=== PATIENT | male | born 1990 | race Caucasian/White ===

== ENCOUNTER 2023-10-09 09:25 | Emergency (ER) | payer BC, SELFPAY ==
--- NOTE | 2023-10-09 09:38 | ED.NAVMDI ---
HPI - Nausea/Vomiting/Diarrhea General Chief complaint: Nausea/Vomiting/Diarrhea Stated complaint: nausea,lightheaded,vomiting Source: patient, RN notes reviewed and old records reviewed Mode of arrival: ambulatory Limitations: no limitations History of Present Illness HPI Narrative: 33-year-old male patient presents to [facility] with complaints nausea, vomiting, diarrhea, general malaise, general myalgia this started . Patient states he has vomited 2 times. Patient states had diarrhea on and is now just having loose stools. Patient taking DayQuil for symptoms with little relief. Related Data Allergies Allergy/AdvReac Type Severity Reaction Status Date / Time codeine Allergy Intermediate INCREASES Verified 10/10/18 19:26 HR, BP AND TEMP Penicillins Allergy Mild Rash Verified 10/10/18 19:26 Review of Systems Constitutional: Constitutional: Reports no additional constitutional complaints, Reports body ache(s), Denies chills, Reports fatigue, Denies fever(s) and Denies headache(s) Eyes: Eyes: Reports no additional eye complaints and Denies blurry vision ENT: Reports system reviewed and no additional complaints, except as documented, Denies vertigo, Denies dizziness, Denies ear discharge, Denies otalgia, Denies facial pain, Denies headache(s), Denies nasal congestion, Denies nasal discharge, Denies sinus pain, Denies sinus pressure and Denies sore throat Cardiovascular: Cardiovascular: Reports no additional cardiovascular complaints, Denies chest pain, Denies chest pain at rest, Denies rapid heart rate and Denies dyspnea Respiratory: Respiratory: Reports no additional respiratory complaints, Denies chest congestion, Denies cough, Denies pain on inspiration, Denies pain with cough and Denies dyspnea Gastrointestinal: Gastrointestinal: Denies abdominal pain, Reports diarrhea, Reports nausea and Reports vomiting Integumentary/Breasts: Skin/Breast: Denies rash Neurologic: Reports system reviewed and no additional complaints, except as documented, Denies vertigo, Denies dizziness and Denies headache(s) Endocrine: Endocrine: Denies fatigue PMFSH Comments At the time of my signature, I reviewed and agree with the nursing past medical, surgical, social, and family history. There is no relevant family history pertinent to the patient complaint. Exam Const: General: cooperative, healthy appearing, no acute distress and well nourished Nutritional Appearance: well nourished Orientation/consciousness: patient oriented x3 Limitations: no limitations HENMT: Head: normal to inspection and normocephalic Ears: external ears normal, TM's normal bilaterally, mastoids normal and Abnormal EAC present Face/Nose/Sinus: normal facial exam Face and sinus: normal facial exam Mouth: Yes Normal oral and palatal mucosa present, Yes oropharynx normal and Yes moist mucous membranes Throat: tonsils normal, uvula midline and no uvular edema Eyes: General: appearance normal, both eyes and all related structures Sclera: sclerae normal Pupils: Equal, round and reactive pupils present Resp: Effort & Inspection: normal respiratory effort, able to speak in complete sentences, no audible wheezes, no cough, no respiratory distress and no retractions Auscultation: clear to auscultation bilaterally, no crackles, no rales, no rhonchi and no wheezes Cardio: Rate: regular rate Rhythm: regular rhythm GI: GI Palp: No abdominal tenderness, Yes Soft to palpation, No Firmness to palpation present (GI), No Tenderness to palpation present (GI), No Guarding due to palpation present (GI), No Rigid due to palpation, Yes No hepatosplenomegaly present, No Splenomegaly present, No Hernia present, No Palpable mass present and No Pulsatile mass present : General: Yes bladder normal to inspection and Yes bladder normal to palpation Skin: General skin exam: normal color and no rashes or lesions noted Neuro: General: patient oriented x3 Cranial nerves: Yes Equal, round and reactive pupils present Psych: Appearance: grossly normal Mental Status: mental status grossly normal Speech and movement: Normal speech and movement present Affect: normal affect Course Course Emergency Course: Patient is aware of diagnosis, understands and agrees to treatment plan.? Anticipatory guidance given.? Patient agrees to follow-up as directed and is aware of reasons to seek care at the emergency department. Some parts of this dictation were generated by voice recognition software and may contain typographical and/or grammatical inaccuracies. Level of Care: Express Care Visit Vital Signs Vital signs: Reviewed MDM - Nausea/Vomiting/Diarrhea MDM Narrative Medical decision making narrative: Patient with nausea vomiting diarrhea that started . Patient's COVID/ influenza test negative. Will treat for viral gastroenteritis. Differential Diagnosis Differential diagnosis: Likely food poisoning, gastroenteritis, dehydration and other (Influenza, Covid) Medical Records Attestation: I reviewed the patient's medical records. Lab Data Attestation: I reviewed the patient's lab results. Discharge Plan Discharge Clinical Impression: Viral gastroenteritis Patient Disposition: Home, Self-Care Condition: Stable Instructions: Gastroenteritis (ED) Additional Instructions: Zofran for nausea /vomiting. Elsk-[id number]-[id number] Imodium for diarrhea. Most important is to keep hydrated. Drink small amounts at a time if nauseated, but frequently. If just able to hold down a few sips only, repeat in a few minutes. The type of liquid is not as important (eg water, Gatorade) as getting enough in. For food, start when you feel ready, start with small amounts of bland food (eg toast, crackers) first, and if no problem can SLOWLY increase the amount. Overall, these stomach bug type illnesses don't last long, averaging 2-5 days, but can last up to 2 weeks. If lasts longer, getting worse, bad pains, black or bloody stools, blood in vomit, fevers start, you feel dizzy when upright, then see us, your doctor, or the emergency room right away. Patient Language: Haitian Prescriptions: New ondansetron 4 mg tablet,disintegrating 4 mg PO Q6H PRN (Reason: nausea and vomiting) Qty: 20 0RF Follow-up/Referrals: Robert,MAXINE Gao [Primary Care Provider] - 1 Week ( [facility] care follow-up) Stand Alone Forms: Work/School Release IP
[2023-10-09 09:41] VITALS: BP 150/94; PULSE 94; RESP 16; TEMP 36.3; O2SAT 98
== END 2023-10-09 10:00 | disposition home or self-care (01) ==
PROVIDERS: Emergency Provider Registered Nurse; PCP Physician Assistant
DX: A08.4 Viral intestinal infection, unspecified (principal); Z20.822 Contact with and (suspected) exposure to COVID-19
CPT/HCPCS: 87426; 87804; 99203; G0463

== ENCOUNTER 2023-10-24 11:18 | Emergency (ER) | payer BC, SELFPAY ==
[2023-10-24 11:22] VITALS: BP 137/88; PULSE 93; RESP 20; TEMP 36.2; O2SAT 98
--- NOTE | 2023-10-24 11:35 | ED.GENADULT ---
HPI - General Adult General Chief complaint: Nausea/Vomiting/Diarrhea Stated complaint: nausea/weakness Time Seen by Provider: 10/24/23 11:37 Source: patient, RN notes reviewed and old records reviewed Mode of arrival: ambulatory Limitations: no limitations History of Present Illness HPI narrative: 33 YEAR OLD MALE PRESENTS TO [facility] WITH COMPLAINTS OF NAUSEA AND VOMITING SINCE YESTERDAY and diarrhea X3 since yesterday. Patient reports that he went to the [employer] and while there started with some nausea and he had abdominal cramping with 3 diarrhea stools last evening. Patient reports that he was on his way to work this morning and he had to stop and throw up. Patient reports that he has had some abdominal cramping but no pain in abdomen, reports no fevers. Patient states that he had similar symptoms 2 weeks ago that last 3 days and resolved. Patient states that he took some Pepto Bismol last night MD complaint: nauea and vomiting, diarrhea Onset (ago): day(s) (day 2 of symptoms) Severity scale (1-10): 3 Treatments prior to arrival: other (peptobismol) Related Data Allergies Allergy/AdvReac Type Severity Reaction Status Date / Time codeine Allergy Intermediate INCREASES Verified 10/24/23 11:41 HR, BP AND TEMP Penicillins Allergy Mild Rash Verified 10/24/23 11:41 Review of Systems Review of Systems: CONSTITUTIONAL: Reports malaise, no chills, sweats, or fever. EYES: Denies visual changes, redness, or discharge. ENT: Reports no rhinorrhea, congestion, sinus pain, no otalgia and no sore throat. CARDIOVASCULAR: Denies chest pain, palpitations, or edema. RESPIRATORY: Reports no cough.? Denies dyspnea. GASTROINTESTINAL: States some abdominal cramping, positive for nausea, vomiting, diarrhea SKIN: Denies rash or itching. MUSCULOSKELETAL: Denies myalgia. NEUROLOGIC: Denies headache. All systems reviewed & are unremarkable except as noted in HPI and below PMFSH Social History Social History (Updated 10/25/23 @ 15:52 by Luciana Ashraf NP) Smoking packs per day: 0.5 Smoking cigarettes per day: 10.0 Years smoked: 5 Smoking pack-years: 2.50 Smoking status: Current every day smoker Tobacco type: cigarettes Alcohol intake: current Alcohol use details: social Substance use type: does not use Living arrangements: with family Gender identity (if verbalized by the patient): Male Comments At time of signature, agree with nursing past medical, surgical, social and family history. There is no relevant family history pertinent to the presenting complaint Exam Narrative: GENERAL: Well-appearing, well-nourished, and in no acute distress. HEAD: Normocephalic EYES: PERRLA, conjunctivae clear ENT: Nares clear, turbinates edematous and erythematous, clear discharge. Mucous membranes moist. TM pearly stewart with dull light reflex bilaterally; no tragal tenderness. Oropharynx erythematous without lesions. Tonsils not enlarged and without exudate, no drooling, no hoarseness, no trismus, uvula midline. NECK: Supple. No lymphadenopathy CHEST: Clear to auscultation, breath sounds equal. No wheezing, rhonchi, rales, or stridor. No respiratory distress, speaks in full sentences.[id number]% on room air HEART: Regular rate and rhythm. No murmur heard. ABDOMEN: soft, nontender to palpation,nondistended, no McBurney point tenderness no rigidity, continued nausea with no vomiting since this morning and no diarrhea since yesterday, denies any sharp pain to abdomen bowel sounds present of adequate quality in all quadrants. SKIN: Warm, dry, no rash. NEURO: Alert and oriented x3. PSYCH: Normal mood and affect Course Course Emergency Course: Patient is aware of diagnosis, understands and agrees to treatment plan.? Anticipatory guidance given.? Patient agrees to follow-up as directed and is aware of reasons to seek care at the emergency department. Portions of this record may have
[2023-10-24] MEDS: ONDANSETRON HCL ODT 4 MG TABLET PO (11:51)
== END 2023-10-24 12:30 | disposition home or self-care (01) ==
PROVIDERS: Emergency Provider Registered Nurse; PCP Physician Assistant
DX: K52.9 Noninfective gastroenteritis and colitis, unspecified (principal); F17.210 Nicotine dependence, cigarettes, uncomplicated
CPT/HCPCS: 99213; A9270; G0463

== ENCOUNTER 2024-07-11 11:02 | Emergency (ER) | payer OTHER, SELFPAY ==
--- NOTE | ~2024-07-11 | XR_ITS ---
EXAMINATION: XR foot RT min 3V DATE: 07/11/2024 11:31 INDICATION: Blunt trauma to the right foot TECHNIQUE: Dorsoplantar, two oblique and lateral views of the right foot were obtained. COMPARISON: None. FINDINGS: Alignment is normal. No fracture. 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 Soft tissues are unremarkable. IMPRESSION: 1. No acute osseous abnormality. Reviewed, dictated and finalized at location A. [facility]
[2024-07-11 11:08] VITALS: BP 129/70; PULSE 73; RESP 20; TEMP 36.4; O2SAT 100
--- NOTE | 2024-07-11 11:17 | ED_ITS ---
HPI - Extremity Injury (Lower) General Chief Complaint: Extremity Injury, Lower Stated Complaint: Right foot injury Time Seen by Provider: 07/11/24 11:18 Source: patient, RN notes reviewed and old records reviewed Mode of arrival: ambulatory Limitations: no limitations History of Present Illness HPI Narrative: 34 year old male who presents to [facility] care with complaints of right foot pain after a manhole cover fell onto his right foot this morning at work.Patient has small red spot to the dorsal aspect of his right foot, no swelling noted. Patient reports pain with ambulation, weight bearing, describes pain as dull continuous ache. complaint: foot injury Onset (ago): hour(s) (this morning while at work.) Injury: Right: foot (dorsal aspect) Type of Injury: blunt Place: work Severity scale (1-10): 3 Exacerbating factors: weight bearing and movement Treatments prior to arrival: other (none) Related Data Home Medications ?Medication ?Instructions ?Recorded ?Confirmed ?Last Taken ?Type No Home Medications 07/11/24 07/11/24 Unknown History Allergies Allergy/AdvReac Type Severity Reaction Status Date / Time codeine Allergy Intermediate INCREASES Verified 07/11/24 11:18 HR, BP AND TEMP Penicillins Allergy Mild Rash Verified 07/11/24 11:18 Review of Systems Review of Systems: CONSTITUTIONAL: Denies fever, chills, or sweats. EYES: Denies visual changes, redness, or discharge. ENT: Denies rhinorrhea, congestion, sore throat, or otalgia. CARDIOVASCULAR: Denies chest pain, palpitations, or edema. RESPIRATORY: Denies cough or dyspnea. GASTROINTESTINAL: Denies abdominal pain, nausea, vomiting, or diarrhea. GENITOURINARY: Denies dysuria or hematuria. SKIN: Denies rash or itching. MUSCULOSKELETAL: Denies back pain,reports pain to dorsal aspect of right foot, or myalgia. NEUROLOGIC: Denies headache, numbness, or weakness. PSYCHIATRIC: Denies anxiety or depression. All systems reviewed & are unremarkable except as noted in HPI and below PMFSH Past Medical History Medical History (Updated 07/12/24 @ 08:53 by Luciana sAhraf NP) Ingrown toenail of right foot removed COVID-19 Dental abscess Bronchitis Social History Social History Smoking packs per day: 0.5 Smoking cigarettes per day: 10.0 Years smoked: 5 Smoking pack-years: 2.50 Smoking status: Current every day smoker Tobacco type: cigarettes Alcohol intake: current Alcohol use details: social Substance use type: does not use Living arrangements: with family Gender identity (if verbalized by the patient): Male Comments At time of signature, agree with nursing past medical, surgical, social and family history. There is no relevant family history pertinent to the presenting complaint Exam Narrative: GENERAL: Well-appearing, well-nourished, and in no acute distress. HEAD: Normocephalic, atraumatic. EYES: PERRLA and EOMI. ENT: Nares clear, no rhinorrhea or epistaxis. Mucous membranes moist. NECK: Supple. CHEST: Clear to auscultation. No respiratory distress.SAO2 sao2 100% on room air HEART: Regular rate and rhythm. No murmur heard. Normal peripheral pulses. ABDOMEN: Soft, nontender, nondistended, normal active bowel sounds. EXTREMITIES: Normal range of motion. No edema.Pain to the dorsal aspect of right foot where manhole cover fell onto foot this morning, small red spot noted on dorsal aspect of right foot, mobility sensation and circulation intact to right foot, pain with ambulation and weight bearing reported.no obvious deformity. SKIN: Warm, dry, no rash. NEURO: No focal deficits. Alert and oriented x3. Course Course Emergency Course: Patient is aware of diagnosis, understands and agrees to treatment plan.? Anticipatory guidance given.? Patient agrees to follow-up as directed and is aware of reasons to seek care at the emergency department. Portions of this record may have been created with voice recognition software Level of Care: Express Care Visit Vital Signs Vital signs: Vital Signs Temperature 36.4 C 07/11/24 11:08 Pulse Rate 73 07/11/24 11:08 Respiratory Rate 20 07/11/24 11:08 Blood Pressure 129/70 07/11/24 11:08 Pulse Oximetry 100 07/11/24 11:08 Oxygen Delivery Room Air 07/11/24 11:08 Temperature 36.4 C 07/11/24 11:08 Pulse Rate 73 07/11/24 11:08 Respiratory Rate 20 07/11/24 11:08 Blood Pressure 129/70 07/11/24 11:08 Pulse Oximetry 100 07/11/24 11:08 Oxygen Delivery Room Air 07/11/24 11:08 Reviewed MDM - Extremity Injury (Lower) MDM Narrative Medical decision making narrative: 1147 Patient medicated with Ibuprofen 600mg while in clinic with no reaction noted. Differential Diagnosis Differential diagnosis: Likely fracture of toe and other (foot fracture, foot contusion,pain right dorsal foot) Medical Records Attestation: I reviewed the patient's medical records. Imaging Data Attestation: I personally reviewed and interpreted this imaging study as follows: My impression: No acute osseous abnormality Radiologist's impression: [facility] [address] [place] [address] XRay Report Signed Patient: Maurizio Jean : 1990 MR#: [id number] Age: 34 Acct:[id number] Loc: EXPBE ADM Date: 07/11/24Attending Dr: Ordering Physician: Luciana Ashraf APRN Date of Service: 07/11/24 Procedure(s): XR foot RT min 3V Accession Number(s): [id number] cc: Robert, Leroy RODRIGUEZ; Luciana Ashraf APRN~ EXAMINATION: XR foot RT min 3V DATE: 07/11/2024 11:31 INDICATION: Blunt trauma to the right foot TECHNIQUE: Dorsoplantar, two oblique and lateral views of the right foot were obtained. COMPARISON: None. FINDINGS: Alignment is normal. No fracture. 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 Soft tissues are unremarkable. IMPRESSION: 1. No acute osseous abnormality. Reviewed, dictated and finalized at location A. [employer] ASSIST[employer] Please be advised this is a medical document. It is intended for [id number] communication. It is written in medical language and may contain unfamiliar abbreviations or verbiage. Medical documents are intended to carry relevant information, facts as evident, and the clinical opinion of the practitioner at the time of the encounter. This report may have been done utilizing a voice recognition system. Attempts have been made to correct errors. However, there may be uncorrected grammatical, spelling, and recognition errors present. The file time of this note does not necessarily represent the time of service. Dictated By: Pramod Fuller MD 07/11/24 1134 Signed By: <Electronically signed by Pramod Fuller MD in OV> Critical Care Time Critical Care Time Critical Care Time: No Discharge Plan Discharge Clinical Impression: Foot pain, right Contusion of foot, right Qualifiers: Encounter type: initial encounter Qualified Code(s): S90.31XA - Contusion of right foot, initial encounter Patient Disposition: Home, Self-Care Condition: Stable Instructions: Antibiotic Form, Foot Contusion (ED) Additional Instructions: Elastic wrap or orthopedic splint as directed for comfort for the next 5-7 days Tylenol for lesser pain Ibuprofen regularly for the next 2-3 days for the inflammation Follow-up with orthopedic surgeon any further complaints or concerns Follow-up with PCP if further problems or concerns Ice to the area 20-30 minutes 4-6 times a day Elevate above heart If your symptoms persist, change or worsen significantly before you can contact your personal physician then please, without delay, go to the emergency department for further evaluation. Follow-up with PCP in 7-10 days or sooner if needed Follow up with PCP soon in regards to your blood pressure which is elevated above threshold for referral. Blood pressure above 120/80 may indicate pre- hypertension. 129/70 Patient Language: Maori Prescriptions: No Action No Home Medications Follow-up/Referrals: Robert,MAXINE Gao [Primary Care Provider] - Time of Disposition: 11:46 Quality Cele Coma Scale Eyes: Open Verbal: Oriented and Alert Motor: Follows Commands Cele Coma Total Score: 15
[2024-07-11] MEDS: IBUPROFEN 600 MG TABLET PO (11:47)
--- OUTSIDE RECORDS SUMMARY | 2024-07-13 17:38 | XMS_ITS | Data Portability ---
[facility] [address] [place] [address] Care Team Providers Care Elevator Inspector Name Role Phone HUMERA JONES Primary Care Provider [phone] Assessment No assessment recorded. Plan of Treatment Reminders Order Date Submit Date Provider Last Modified By Organization Details Last Modified Time Details Appointments None recorded . Lab None recorded . Referral gastroen terologi st referral 2023 024 KHUSHBU Malloy MD, [address] [place], [address], 4 16:44:23 Procedures None recorded . Surgeries None recorded . Imaging XR, ankle + foot 2019 020 [facility] ([facility]) Scheduling, [address] [place], [address], 0 22:48:41 CT, abdomen, w/o contrast 2023 024 [facility] ([facility]) Scheduling, [address] [place], [address], 4 01:06:10 Medication Orders diclofen ac sodium 75 mg tablet,d elayed release 2019 020 [id number], [address], [place], [place], [id number], 0 10:46:40 Patient TargetsNo targets recorded. Patient Instructions Encounter Date Encounter Id Patient Instructions Last Modified By Organization Details Last Modified Time 09/13/2019 [id number] costochondritis: care instructions jnanney Not available 09/13/2019 16:58:25 04/18/2020 [id number] abdominal pain: care instructions jnanney Not available 04/18/2020 11:02:59 follow up in 2 weeks jnanney Not available 04/18/2020 11:02:58 10/27/2023 [id number] A healthy lifestyle: care instructions anney Not available 10/27/2023 14:24:03 11/11/2023 [id number] A healthy lifestyle: care instructions anney Not available 11/11/2023 15:51:38 Reason for Referral Dispute Specialist Referral for Right upper quadrant pain Referring Physician: Humera Jones, Family Medicine, Encounter Date: 11/11/2023 Results Created Date Observation Date Name Description Value Unit Range Abnormal Flag Note LastModifiedBy Organization Detail LastModifiedTime 11/29/19 20 11/28/2019 XR, ankle + foot No observ ation record ed. bbertoglioma Not Available 04/2020 15:26:29 11/29/19 20 11/28/2019 XR, ankle + foot No observ ation record ed. bbertoglioma Not Available 04/2020 15:26:29 11/08/19 24 11/04/2023 CT, abdom en, w/o contr ast No observ ation record ed. [email or web address] [facility] [address] [place], [address], 11/08/2023 10:38:41 07/11/19 25 07/11/2024 XR, foot No observ ation record ed. [email or web address] Bashir [facility] [address], [place], [address], 07/11/2024 14:08:20 Result Notes None recorded. Problems No Known Problems Procedures Surgical History None recorded. Imaging Results Imaging Date Name Status LastModified by Organ [facility]on [facility] Details LastModified Time 11/28/2019 XR, ankle + foot completed Information not available 11/30/2019 15:26:29 11/28/2019 XR, ankle + foot completed Information not available 11/30/2019 15:26:29 11/04/2023 CT, abdomen, w/o contrast [email or web address] [address] [place], [address], 11/08/2023 10:38:41 07/11/2024 XR, foot completed [email or web address] [facility] [address], [place], [address], 07/11/2024 14:08:20 Procedure Notes None recorded. Medical Equipment None Reported. Allergies Allergen ID Allergen Name Allergen Category Reaction Reaction Severity Criticality Documentation Date Start Date Code Code System Note Provider Name and Address Organization Details Recorded Time [id number] 2824e Product containin g penicilli n and antibioti c (product) medicatio n Not available Not available Not available 07/21/2018 92728 05 SNOMED Not Available Not Available Not Available [id number] 1406620n4 2824e codeine medicatio n Not available Not available Not available 07/21/2018 2670 RxNorm Not Available Not Available Not Available Medications Name Sig Start Date Stop Date Status Note LastModified by Organization Details LastModified Time clindamycin HCl 300 mg capsule 09/12 completed Not Available Not Available Not Available azithromyci n 250 mg tablet 07/21 completed Not Available Not Available Not Available benzonatate 200 mg capsule 07/21 completed Not Available Not Available Not Available meloxicam 15 mg tablet 07/21 completed Not Available Not Available Not Available diclofenac sodium 75 mg tablet,brijesh yed release Take 1 tablet twice a day by oral route for 30 days. 04/18 completed Not Available Not Available Not Available mupirocin 2 % topical ointment 07/21 completed Not Available Not Available Not Available ondansetron 4 mg disintegrat ing tablet DISSOLVE 1 TABLET ON TONGUE EVERY 6 HOURS NEEDED FOR NAUSEA AND VOMITING 10/26 completed Not Available Not Available Not Available Virtussin AC 10 mg-100 mg/5 mL oral liquid 07/21 completed Not Available Not Available Not Available Vitals Date Recorded Body weight Provider Name an d Address Organization Details Last Updated DateTime 09/13/2019 579453.53 g Kami Earl [place] - [place] 020 16:23:37 Date Recorded Oxygen saturation Oxygen saturation in Arterial blood by Pulse oximetry Provider Name and Address Organization Details Last Updated DateTime 09/13/2019 98 % 98 % Kami Earl [place] 09/13/2019 16:25:07 Date Recorded Heart rate Provider Name an d Address Organization Details Last Updated DateTime 09/13/2019 80 /min Kami Earl MA [facility] 09/13/19 16:25:11 Date Recorded Body temperature Provider Name a nd Address Organization Details Last Updated DateTime 09/13/2019 98 [degF] Kami Earl [place] 09/13/19 16:25:43 Date Recorded Body height Provider Name an d Address Organization Details Last Updated DateTime 10/27/2023 170.18 cm Sherley Morin MA [facility] 10/27/19 14:00:25 Date Recorded Body mass index (BMI) Body weight Provider Name and Address Organization Details Last Updated DateTime 10/27/2023 37.8 kg/m2 347154.86 g Sherley Morin MA [facility] 10/27/2023 14:00:31 Date Recorded Oxygen saturation Oxygen saturation in Arterial blood by Pulse oximetry Provider Name and Address Organization Details Last Updated DateTime 10/27/2023 96 % 96 % R[facility] [place] 10/27/2023 14:02:09 Date Recorded Heart rate Provider Name an d Address Organization Details Last Updated DateTime 10/27/2023 97 /min R[facility] 10/27/19 14:02:11 Date Recorded Body height Provider Name an d Address Organization Details Last Updated DateTime 11/11/2023 170.18 cm Sherley Morin MA [facility] 11/11/19 15:28:30 Date Recorded Heart rate Provider Name an d Address Organization Details Last Updated DateTime 11/11/2023 94 /min Sherley Morin [place] [facility] [facility] 11/11/19 15:28:47 Date Recorded Oxygen saturation Oxygen saturation in Arterial blood by Pulse oximetry Provider Name and Address Organization Details Last Updated DateTime 11/11/2023 96 % 96 % R[facility] 11/11/2023 15:28:52 Date Recorded Body mass index (BMI) Body weight Provider Name and Address Organization Details Last Updated DateTime 11/11/2023 38.5 kg/m2 672883.72 g Sherley Morin [facility] 11/11/2023 15:29:06 Date Recorded Systolic blood pressure Diastolic blood pressure Provider Name and Address Organization Details Last Updated DateTime 09/13/2019 132 mm[Hg] 84 mm[Hg] Kami Earl MA [facility] 09/13/2019 16:24:58 Date Recorded Systolic blood pressure Diastolic blood pressure Provider Name and Address Organization Details Last Updated DateTime 10/27/2023 136 mm[Hg] 82 mm[Hg] Sherley Morin MA [facility] 10/27/2023 14:02:06 Date Recorded Systolic blood pressure Diastolic blood pressure Provider Name and Address Organization Details Last Updated DateTime 11/11/2023 146 mm[Hg] 90 mm[Hg] Sherley Morin MA [facility] 11/11/2023 15:30:06 Social History Question Answer Notes LastModified by Organizat ion Details LastModified Time Tobacco Smoking Status Current Every Day Smoker Nusrat Mari MA [facility] 07/21/2018 12:12:10 What Is Your Level Of Alcohol Consumption? None Information not available 11/11/2023 What Is Your Level Of Caffeine Consumption? Heavy Information not available 07/21/2018 In The 14 Days Before Symptom Onset, Have You Had Close Contact With A Laboratory-confir med COVID-19 While That Case Was Ill? No Information not available 09/13/2019 If Patient Spent Time In [facility] - Does The Patient Live In [facility]? No Information not available 09/13/2019 In The 14 Days Before Symptom Onset, Have You Had Close Contact With A Person Who Is Under Investigation For COVID-19 While That Person Was Ill? No Information not available 09/13/2019 In The 14 Days Before Symptom Onset, Did The Patient Spend Time In [facility]? No Information not available 09/13/2019 Have You Been To An Area Known To Be High Risk For COVID-19? No Has Been In [facility] Information not available 09/13/2019 Are You Currently Employed? Yes Information not available 04/18/2020 What Type Of Diet Are You Following? REGULAR Information not available 04/18/2020 Which Illicit Or Recreational Drugs Have You Used? None Information not available 07/21/2018 Do You Or Have You Ever Used E-cigarettes Or Vape? 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 11/11/2023 Information not available 11/11/2023 Do You Or Have You Ever Used Smokeless Tobacco? Never Used Smokeless Tobacco Information not available 04/18/2020 How Much Tobacco Do You Smoke? 0.25 PPD 3-4 Cig Information not available 07/21/2018 General Stress Level Medium Information not available 04/18/2020 On What Date Was Tobacco Cessation Counseling Provided? 11/11/2023 Information not available 11/11/2023 How Many Years Have You Smoked Tobacco? 4 Information not available 07/21/2018 Sex: Male Functional Status Question Answer Note LastModified by Organization D etails LastModified Time Are you able to care for yourself? Yes Information n ot available 09/13/2019 Mental Status None recorded. Family History Relationship Description Onset Age of this Age Resolved Age Notes LastModified by Organization Details LastModified Time Maternal Grandmother Diabetes mellitus sdevriesma Not available 07/21 12:11:23 Father Hypertensive disorder sdevriesma Not available 07/21 12:11:30 Paternal Grandfather Family history of malignant neoplasm sdevriesma Not available 07/21 12:12:05 Maternal Grandfather Family history of malignant neoplasm Lung liver sdevriesma Not available 07/21/2018 12:12:05 Maternal Uncle Family history of malignant neoplasm Lung liver sdevriesma Not available 07/21/2018 12:12:05 Medical History Condition Response Coronary Artery Disease N Other N High Blood Pressure N Atrial Fibrillation N Kidney or Bladder Problems N Thyroid Problems N GI Problems N Depression N COPD N Blood Clots N Skin Problems N Anemia N Heart Attack (IA) N Anxiety Disorder N Diabetes N Muscle, Joint, or Bone Problems N Seizures/Epilepsy N Acid Reflux (GERD) N Cancer N Stroke N Asthma N Allergies N High Cholesterol N Hepatitis N Liver Disease N Headaches N Heart Failure N Osteoporosis N Past Encounters Encounter ID Performer Location Encounter Start Date Encounter Closed Date Diagnosis/Indication Diagnosis SNOMED-CT Code Diagnosis ICD10 Code Diagnosis Note [id number] MICHAEL Viramontes [facility] [address] [place] [address] 07/21/2018 11:39:18 07/21/2018 12:56:43 Shoulder joint pain 204164624 M25.512 Adult [facility] th examination 891332266 Z00.00 [id number] Humera Jones PA-C [facility] [address] [place] [address] 08/18/2018 11:31:19 08/18/2018 12:18:32 Pain of left shoulder joint 2972503875 2900500 M25.052 [id number] Kami Earl MA [facility] [address] [place] [address] 09/13/2019 16:17:41 09/13/2019 17:23:39 Costal chondritis 90405392 M94.0 [id number] Humera Jones PA-C [facility] [address] [place] [address] 11/28/2019 09:27:18 11/29/2019 07:16:52 Pain of right ankle joint 0899747164 0433899 M25.048 [id number] Humera Jones PA-C [facility] [address] [place] [address] 04/18/2020 09:33:13 04/19/2020 14:42:43 Abdominal pain 45538476 R10.13 [id number] Humera Jones PA-C [facility] [address] [place] [address] 10/27/2023 13:39:03 11/01/2023 15:27:40 Left upper quadrant pain 396516276 R10.12 Overweight 059170937 E66 .3 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 [id number] Humera Jones PA-C [facility] [address] [place] [address] 11/11/2023 15:11:40 11/12/2023 15:51:04 Right upper quadrant pain 783545973 R10.11 Overweight 893762876 E66 .3 Health Concerns Section Related Observation LastModified by Organization Detai ls LastModified Time None Recorded Concern Status LastModified by Organization Details LastModified Time None Recorded Advance Directives Directive None Recorded Payers Encounter Date Sequence Insurance Name Policy Number Policy Benítez Covered Member ID Benítez Member ID Guarantor Name 09/13/2019 1 [place] [id number] Maurizio Bardmass [id number] Maurizio Bardmass 11/28/2019 1 *SELF PAY* Do uglas Bardmass 04/18/2020 1 *SELF PAY* Do uglas Bardmass 10/27/2023 1 [place] [facility] [employer] - [facility] [employer] [employer] [employer] [id number] Bardmass [id number] Maurizio Bardmass 11/11/2023 1 [employer] [facility] [employer] - [facility] [employer] [address] Bard[address] [id number] Maurizio Bardmass Notes Date Note Type Note Provider Name and Address Organization Details Recorded Time 09/13/2019 text/html for past week sotelo ving intermittant chest pains left arm pains describes minimal jaw pain...some SOB with activity..episode duration..also random headaches not necessarily related to other symptoms..onset of symptoms vary..137/105 yesterday for 45 - an hour duration...no known cardiac history. started with Dr Christopher in the [place] [facility]...2013 had an anxiety attack that felt similar..yesterday reached for his wallet got arm pain an hour later got chest pain... 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 doesnt eat breakfast or sometimes lunch... Humera Jones PA-C Attn: [address] , [place], [address], [facility] 04/18/2020 11:16:27 10/27/2023 text/html went to ER for stomach related issues...vomiting nausea and diarrhea...has been present for awhile...dependant on what he eats...fried foods are worst...describes lower abdomen..30 minutes after eating...never had abdominal scan...was diagnosed as having possible diverticulitis Humera Jones PA-C Attn: Accounting, [address] [facility], [place], [address], [facility] 10/27/2023 14:25:59 11/11/2023 text/html CT negative...af ter eating has stomach pain and diarrhea 30 minutes after eating...no difference in foods.. Humera Jones PA-C Attn: [address] [facility], [place], [address], [facility] 11/11/2023 15:53:45
== END 2024-07-11 11:52 | disposition home or self-care (01) ==
PROVIDERS: Emergency Provider Registered Nurse; PCP Physician Assistant
DX: S90.31XA Contusion of right foot, initial encounter (principal); W20.8XXA Other cause of strike by thrown, projected or falling object, initial encounter; Y99.0 Civilian activity done for income or pay; F17.210 Nicotine dependence, cigarettes, uncomplicated; Z86.16 Personal history of COVID-19
CPT/HCPCS: 73630; 99213; A9270; G0463

== ENCOUNTER 2024-09-29 08:10 | Emergency (ER) | payer MEDICAID, SELFPAY ==
[2024-09-29 08:18] VITALS: BP 149/84; PULSE 88; RESP 20; TEMP 36.8; O2SAT 99
--- NOTE | 2024-09-29 08:19 | ED_ITS ---
HPI - URI/Sore Throat General Chief Complaint: Upper Respiratory Infection Stated Complaint: Cough/Fever Time Seen by Provider: 09/29/24 08:55 Source: patient and RN notes reviewed Mode of arrival: ambulatory Limitations: no limitations History of Present Illness HPI Narrative: 34-year-old male presents concern for 4 day history of fever, chest congestion, cough, sinus congestion, headache, coughing fits. He reports he is having chest pain with coughing and deep breathing intermittently. He has been taking DayQuil and NyQuil. MD elicited complaint: cough Related Data Allergies Allergy/AdvReac Type Severity Reaction Status Date / Time codeine Allergy Intermediate INCREASES Verified 09/29/24 08:36 HR, BP AND TEMP Penicillins Allergy Mild Rash Verified 09/29/24 08:36 Review of Systems Review of Systems: CONSTITUTIONAL: Reports malaise, fever. EYES: Denies visual changes, redness, or discharge. ENT: Denies rhinorrhea, congestion, sinus pain, otalgia and sore throat. CARDIOVASCULAR: Denies chest pain, palpitations, or edema. RESPIRATORY: Reports cough, chest congestion, intermittent chest pain with coughing and deep breathing. Denies dyspnea. GASTROINTESTINAL: Denies abdominal pain, nausea, vomiting, diarrhea SKIN: Denies rash or itching. MUSCULOSKELETAL: Reports myalgia. NEUROLOGIC: Reports headache. All systems reviewed & are unremarkable except as noted in HPI and below PMFSH Past Medical History Medical History (Updated 09/29/24 @ 09:09 by Didi Pruitt NP) Ingrown toenail of right foot removed COVID-19 Dental abscess Bronchitis Social History Social History Smoking packs per day: 0.5 Smoking cigarettes per day: 10.0 Years smoked: 5 Smoking pack-years: 2.50 Smoking status: Current every day smoker Tobacco type: cigarettes Alcohol intake: current Alcohol use details: social Substance use type: does not use Living arrangements: with family Gender identity (if verbalized by the patient): Male Comments At time of signature, agree with nursing past medical, surgical, social and family history. There is no relevant family history pertinent to the presenting complaint Exam 2 Narrative: GENERAL: Nontoxic-appearing, well-nourished, and in no acute distress. HEAD: Normocephalic EYES: PERRLA, conjunctivae clear ENT: Nares clear. Mucous membranes moist. TM pearly stewart with sharp light reflex bilaterally; no tragal tenderness. Oropharynx not erythematous without lesions. Tonsils not enlarged and without exudate, no drooling, no hoarseness, no trismus, uvula midline. NECK: Supple. No lymphadenopathy CHEST: Clear to auscultation, breath sounds equal. No wheezing, rhonchi, rales, or stridor. No respiratory distress, speaks in full sentences. Harsh cough noted HEART: Regular rate and rhythm. No murmur heard. SKIN: Warm, dry, no rash. NEURO: Alert and oriented x3. PSYCH: Normal mood and affect Course Course Emergency Course: Patient is aware of diagnosis, understands and agrees to treatment plan. Anticipatory guidance given. Patient agrees to follow-up as directed and is aware of reasons to seek care at the emergency department. Portions of this record may have been created with voice recognition software Level of Care: Express Care Visit Vital Signs Vital signs: Vital Signs Temperature 98.2 F 09/29/24 08:18 Pulse Rate 88 09/29/24 08:18 Respiratory Rate 20 09/29/24 08:18 Blood Pressure 149/84 H 09/29/24 08:18 Pulse Oximetry 99 09/29/24 08:18 Oxygen Delivery Room Air 09/29/24 08:18 Temperature 98.2 F 09/29/24 08:18 Pulse Rate 88 09/29/24 08:18 Respiratory Rate 20 09/29/24 08:18 Blood Pressure 149/84 H 09/29/24 08:18 Pulse Oximetry 99 09/29/24 08:18 Oxygen Delivery Room Air 09/29/24 08:18 Reviewed. MDM - URI/Sore Throat MDM Narrative Medical decision making narrative: Differential diagnosis considered: Marks virus, strep pharyngitis, allergic rhinitis, upper respiratory tract infection, sinusitis, rhinosinusitis, nasopharyngitis. viral pharyngitis, otitis media, otitis externa, pneumonia, bronchitis, viral cough syndrome, viral syndrome, and influenza. Exam findings show no acute concerns or changes; patient is non-toxic appearing and is in no distress. Patient is appropriate for outpatient treatment and follow-up. Lab Data Attestation: I reviewed the patient's lab results. Critical Care Time Critical Care Time Critical Care Time: No Discharge Plan Discharge Clinical Impression: Bronchitis Patient Disposition: Home Condition: Stable Instructions: Antibiotic Form Additional Instructions: Viral illness may last between 7-21 days; antibiotics do not cure viral illness and are NOT recommended at this time. Recommend antihistamine such as Benadryl at night time and Zyrtec or Brneda during the day Cough syrup may cause drowsiness; avoid driving or take it at night time. Also, recommend symptomatic treatment includes: rest, fluids, and increase humidity of the air at home. Recommend Acetaminophen as directed on the bottle to reduce fever, pain, headache. Avoid smoking/second-hand smoke. Please schedule a follow-up visit with your personal physician for further evaluation and treatment within 3-5days. Including recheck and discussion of your blood pressure. If your symptoms persist, change or worsen significantly before you can contact your personal physician then please, without delay, go to the emergency department for further evaluation. Patient Language: Dutch Prescriptions: New promethazine-DM 6.25-15 mg/5 mL syrup 5 ml PO Q4-6H PRN (Reason: cough) Qty: 120 0RF methylprednisolone [Medrol (Beau)] 4 mg tablets,dose pack See Rx Instructions .ROUTE .COMPLEX Qty: 21 0RF Rx Instructions: orally per package directions Follow-up/Referrals: Robert,MAXINE Gao [Primary Care Provider] - Time of Disposition: 09:10
[2024-09-29 08:25] VITALS: PULSE 88; RESP 20; O2SAT 99
[2024-09-29 08:59] LABS: EDCOVIDSCREEN Negative (Negative)
[2024-09-29 09:10] LABS: EDINFLUASCREEN Negative (Negative); EDINFLUBSCREEN Negative (Negative)
== END 2024-09-29 09:15 | disposition home or self-care (01) ==
PROVIDERS: Emergency Provider Nurse Practitioner; PCP Physician Assistant
DX: J40 Bronchitis, not specified as acute or chronic (principal); Z20.822 Contact with and (suspected) exposure to COVID-19; F17.210 Nicotine dependence, cigarettes, uncomplicated; Z86.16 Personal history of COVID-19
CPT/HCPCS: 87426; 87804; 99213; G0463

== ENCOUNTER 2024-10-31 12:25 | Emergency (ER) | payer OTHER, SELFPAY ==
[2024-10-31 12:35] VITALS: BP 147/82; PULSE 88; RESP 16; TEMP 36.7; O2SAT 99
--- NOTE | 2024-10-31 13:20 | ED.NAVMDI ---
HPI - Nausea/Vomiting/Diarrhea General Chief complaint: Nausea/Vomiting/Diarrhea Stated complaint: nausea/light headed Time Seen by Provider: 10/31/24 13:20 Source: patient and RN notes reviewed Mode of arrival: ambulatory Limitations: no limitations History of Present Illness HPI Narrative: 34-year-old male presented for complaint of nausea for 2 days. Endorses 2 episodes of vomiting yesterday morning. Endorses some discomfort across the upper abdomen. Denies diarrhea, fevers or chills. Patient has tolerated food today. No meds for symptoms. Related Data Home Medications ?Medication ?Instructions ?Recorded ?Confirmed ?Last Taken ?Type No Home Medications 10/31/24 10/31/24 Unknown History Allergies Allergy/AdvReac Type Severity Reaction Status Date / Time Penicillins Allergy Mild Rash Verified 10/31/24 12:54 codeine AdvReac Intermediate INCREASES Verified 10/31/24 12:54 HR, BP AND TEMP Review of Systems Review of Systems: per HPI All systems reviewed & are unremarkable except as noted in HPI and below PMFSH Past Medical History Medical History (Updated 10/31/24 @ 13:29 by Roxanne Gomez, JIGNESH) Ingrown toenail of right foot removed COVID-19 Dental abscess Bronchitis Social History Social History Smoking packs per day: 0.5 Smoking cigarettes per day: 10.0 Years smoked: 5 Smoking pack-years: 2.50 Smoking status: Current every day smoker Tobacco type: cigarettes Alcohol intake: current Alcohol use details: social Substance use type: does not use Living arrangements: with family Gender identity (if verbalized by the patient): Male Comments At time of signature, I have reviewed and agree with nursing past medical, surgical, social and family history unless otherwise noted. Please see nursing chart for further information. There is no relevant family history pertinent to the presenting complaint Exam Narrative: GENERAL: Well-appearing, and in no acute distress. EYES: EOMI. Conjunctivae normal. ENT: Mucous membranes pink and moist. CHEST: No respiratory distress. Clear to auscultation. HEART: Regular rate and rhythm. No murmur appreciated. Normal peripheral pulses. ABDOMEN: abd soft, nondistended, normal active bowel sounds. Slightly tender abdomen to epigastric and upper quadrants; No guarding, rebound tenderness, asymmetry EXTREMITIES: Normal range of motion. No edema. SKIN: Warm, dry, no rash. Capillary refill normal. Normal skin turgor. NEURO: No focal deficits. Alert and oriented x3. PSYCH: Normal affect. Course Course Emergency Course: Patient is aware of diagnosis, understands and agrees to treatment plan. Anticipatory guidance given. Patient agrees to follow-up as directed and is aware of reasons to seek care at the emergency department. Portions of this record may have been created with voice recognition software Level of Care: Express Care Visit Vital Signs Vital signs: Vital Signs Temperature 98.0 F 10/31/24 12:35 Pulse Rate 88 10/31/24 12:35 Respiratory Rate 16 10/31/24 12:35 Blood Pressure 147/82 H 10/31/24 12:35 Pulse Oximetry 99 10/31/24 12:35 Oxygen Delivery Room Air 10/31/24 12:35 Temperature 98.0 F 10/31/24 12:35 Pulse Rate 88 10/31/24 12:35 Respiratory Rate 16 10/31/24 12:35 Blood Pressure 147/82 H 10/31/24 12:35 Pulse Oximetry 99 10/31/24 12:35 Oxygen Delivery Room Air 10/31/24 12:35 MDM - Nausea/Vomiting/Diarrhea MDM Narrative Medical decision making narrative: Discussed physical exam findings. Advised supportive measures, pt declined rx ondansetron. Reviewed signs/symptoms to go to the ER. Pt is appropriate for outpt treatment and f/u. Differential Diagnosis Differential diagnosis: Likely traveler's diarrhea, food poisoning, gastroenteritis, clostridium difficile infection, drug-induced nausea and vomiting and dehydration Discharge Plan Discharge Clinical Impression: Nausea & vomiting Patient Disposition: Home Condition: Stable Instructions: Gastroenteritis (ED) Additional Instructions: Stay hydrated. Take small sips of fluid containing electrolytes frequently. Clear liquids (broth, jello, tea, sprite, pedialyte) [place] foods (bananas, rice, applesauce, toast, crackers) Avoid fatty, greasy, fried or spicy foods. Limit dairy until symptoms are improved. You can try Pepcid or Tums. You should go to the hospital if you experience persistent nausea and vomiting that does not resolve and does not allow you to tolerate any food or fluids, fevers, increasing abdominal pain, persistent diarrhea, dizziness, fainting, or for any other concerns. Follow up with primary care provider in 3 days. Patient Language: Andorran Prescriptions: No Action No Home Medications Follow-up/Referrals: Robert,MAXINE Gao [Primary Care Provider] - Stand Alone Forms: Work/School Release IP
== END 2024-10-31 13:34 | disposition home or self-care (01) ==
PROVIDERS: Emergency Provider Nurse Practitioner Family; PCP Physician Assistant
DX: R11.2 Nausea with vomiting, unspecified (principal); F17.210 Nicotine dependence, cigarettes, uncomplicated; Z86.16 Personal history of COVID-19
CPT/HCPCS: 99211; G0463

== ENCOUNTER 2025-04-15 09:58 | Emergency (ER) | payer OTHER, SELFPAY ==
--- OUTSIDE RECORDS SUMMARY | 2023-02-17 10:30 | XMS_ITS | Continuity of Care Document ---
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 Name Role Phone Manny LEHMAN, Brice Unavailable Unavailable Allergies, Adverse Reactions, Alerts Substance Reaction Status Criticality Penicillins Active No Information codeine Active No Information Procedures Procedure Date OFFICE/OUTPATIENT VISIT EST OFFICE/OUTPATIENT VISIT EST RADEX KNE 3 VIEWS Triamcinolone acet inj NOS DRAIN/INJECT JOINT/BURSA OFFICE/OUTPATIENT VISIT NEW Advance Directives Directive Yes / No Effective Date File Name No Information Encounters Encounter Description Practice Location Reason(s) For Visit Diagnoses Date Provider Providers Copied on Encounter OFFICE/OUTPAT IENT VISIT EST [facility] , [address] [facility] [address], [address], [place] tel:[phone] [facility] knee (chief complaint) Chondromala gio, left knee Manny Narvaez. [address] [place], [place], [id number]. tel:[phone] OFFICE/OUTPAT IENT VISIT EST [facility] , [address], [address], [place] tel:[phone] [facility] knee (chief complaint) Pain in left knee Manny Narvaez. [address] [place], [place], [id number]. tel:[phone] OFFICE/OUTPAT IENT VISIT NEW [facility] , [address] [facility], [place], [address], [place] tel:[phone] [facility] knee (chief complaint) Pain in left knee Manny Narvaez. [address], [place], [place], [id number]. tel:[phone] Family History Family Member Type Diagnosis Age At Onset Problem Family history of Cancer, rosette ng Problem Family history of Diabetes m marilin Problem Family history of Hypertensi on Payers Payer name Insurance type Covered constitution party ID Authoriza tiravin(s) [employer] OT [id number] Social History Type Description Quantity Date Captured Comments Alcohol Use Details No Caffeine Use Details Unknown Tobacco Use Status Occasional cigarette smoker Smoking Status Heavy tobacco smoker Sex Male Chief Complaint And Reason For Visit From encounter dated '02/17/2023 15:30'. knee (chief complaint) Reason For Referral Reason For Referral No Information Plan Of Treatment Date Type Action Status Referral Ordered: MRI JT Lower w/o Contrast LT knee ordered Referral Ordered: RADEX KNE 3 VIEWS LT ordered History Of Present Illness Encounter Date Complaint History Of Prese nt Illness knee Comments: Reason for visit: MRI results, left knee knee Comments: Shayla acuña is seen for left knee pain.Patient is a 32 year old male who had a corticosteroid injection for left knee pain. He has popping and clicking for presumed meniscal tear. He has had home exercises, antiinflammatories, continues to have pain that affects his quality of life and sleep. knee Comments: Julio Cesar Jean is here for left knee pain. Patient is a pleasant 32 year old male with 6 months of knee pain. He doesn't recall a specific injury but he has pain on the medial aspect of his knee with popping and locking, occasional effusions as well. He is taking antiinflammatories. Functional Status Date Functional Assessmen t No Information Instructions Date Instruction Additional Infor mation I discussed this ful ly with him. It is a little frustrating that we did not find a structural cause for his pain. I would like him to see a learning technologist to rule out any systemic causes. We will send him with a referral for this. Otherwise, he will continue anti-inflammatories and rest. The medical record documentation of this Provider's service encounter was entered by Brandie Connors, acting as Funeral Prearrangement Counselor for Brice Bryant MD Related to Chondromalacia, left knee I discussed patients condition with him. He failed conservative care in the form of antiinflammatories, rest, activity modifications, intra articular corticosteroid injection, therefore we will order an MRI of the left knee to evaluate for meniscus tear for possibly arthroscopic procedure. The medical record documentation of this Provider's service encounter was entered by Cheyenne Jimenez, acting as Funeral Prearrangement Counselor for Brice Bryant M.D. Related to Pain in left knee I discussed patient' s condition with him. I provided the patient with a corticosteroid injection, Diclofenac and home exercises. Followup in 1 month. If pain persists we will consider an MRI. Verbal consent was obtained from the patient after the risks, benefits and alternatives were explained. The complications discussed include but are not limited to: pain, infection, steroid flare, fat necrosis, skin discoloration, and injury to blood vessels or nerves. Drug allergies were noted. The patient wishes to proceed with the injection.The skin was sterilized with chlorhexidine solution and topical ethyl chloride spray was used as a local anesthetic. Under sterile conditions the left knee is injected with local anesthetic and corticosteroid. The patient tolerated the procedure without immediate complications. A Band-Aid was appliedThe patient was instructed to call the office if any signs or symptoms of infection occur (including significant increase in pain, warmth, redness or drainage at the injection site) or if they have other concerns/questions.I discussed the risks, benefits, alternatives, potential complications as well as the expected postoperative recovery from this procedure. I answered any and all questions the patient had regarding this procedure to the best of my ability. The patient was given informed consent for the procedure. The medical record documentation of this Provider's service encounter was entered by Cheyenne Jimenez, acting as Funeral Prearrangement Counselor for Brice Bryant M.D. Related to Pain in left knee Assessments Type Assessment Date assessment Chondromalacia, left knee Patient Care Teams Name Effective Dates (start - stop) Status Members No Information
--- OUTSIDE RECORDS SUMMARY | 2025-04-15 10:00 | XMS_ITS | Clinical Summary ---
Author Organization [facility] Address [address] [place] [address] Phone Care Team Providers Care Tacking Machine Operator Name Role Phone Leroy Jones Primary Care Provider Marlen Zimmerman APRN, OBSERVATORY DIRECTOR Unavailable Allergies Active Allergy Reactions Criticality Noted Date Comments Codeine Unknown 12/14/2023 Penicillins Hives 06/04/2018 Medications guaiFENesin-code ine (TUSSI-ORGANIDIN NR) 100-10 MG/5ML Syrup Take 5 mL by mouth every 6 hours as needed. Active azithromycin (ZITHROMAX) 250 MG Tablet Take 250 mg by mouth daily. 2 tab(s) daily for 1 day, then 1 tab(s) daily for days 2-5. Active ibuprofen (MOTRIN) 600 MG Tablet Take 1 Tablet by mouth every 6 hours as needed for Fever. 15 Tablet 02/06/2021 Active dicyclomine (BENTYL) 20 MG TabletIndication s:RUQ pain Take 1 Tablet by mouth every 6 hours as needed for Other. 120 Tablet 12/14/2023 Active Active Problems No known active problems Social History Tobacco Use Types Packs/Day Years Used Date Smoking Tobacco: Every Day Cigarettes Smokeless Tobacco: Never Alcohol Use Standard Drinks/Week Comments Not Currently 0 (1 standard drink = 0.6 oz pur e alcohol) Sex and Gender Information Value Date Recorded Sex Assigned at Not on file Legal Sex Male 5:01 PM [employer] Gender Identity Not on file Sexual Orientation Straight 12/14/2023 7: 40 AM CDT Last Filed Vital Signs Vital Sign Reading Time Taken Comments Blood Pressure 140/98 12/14/2023 2:14 PM CDT Pulse 76 12/14/2023 2:14 PM CDT Temperature 37 C (98.6 F) 12/14/2023 2:14 PM CDT Respiratory Rate 14 12/14/2023 2:14 PM CDT Oxygen Saturation 96% 12/14/2023 2:14 PM CDT Inhaled Oxygen Concentration - - Weight 108.2 kg (238 lb 9.6 oz) 12/14/2023 2:14 PM CDT Height 170.2 cm (5' 7) 12/14/2023 2:14 PM CDT Body Mass Index 37.37 12/14/2023 2:14 PM CDT Plan of Treatment Health Maintenance Due Date Last Done Comments Hepatitis C Virus (HCV) Screening 1992 TdaP Immunization 1992 Pneumococcal Immunization Combined (1 of 2 - PCV) 2011 Human Papillomavirus (HPV) Immunization (1 - 3-dose SCDM series) 2019 Influenza Immunization (#1) 2025 SARS-COV-2 Immunization (3 - 2024- season) 2025 12/07/2020, 11/09/2020 Respiratory Syncytial Virus (RSV) Immunization (Adult) (1 - 1-dose 75+ series) 2067 Hepatitis B Immunization Completed 993, 1992, 1992 DTaP/Tdap/Td Immunization Discontinued 1993, 01/02/1993, 1992, Additional history exists Meningococcal Immunization (ACWY) Aged Out No longer eligible based on patient's age to complete this topic Rotavirus Immunization Aged Out No lo nger eligible based on patient's age to complete this topic Insurance [facility] MEDICAID [place] Care Teams Tacking Machine Operator Relationship Specialty Start Date End Date Leroy Jones PAC [address] [place] [address] PCP - General Physician Incident Analyst 07/29/18 Marlen Zimmerman APRN, OBSERVATORY DIRECTOR [address] [place] [address] Nurse Practitioner Advanced Practice Nurse 12/14/23
[2025-04-15 10:03] VITALS: BP 123/77; PULSE 65; RESP 16; TEMP 36.5; O2SAT 98
--- NOTE | 2025-04-15 10:32 | ED_ITS ---
HPI - Male Genitourinary General Chief complaint: Urogenital-Male Stated complaint: Urinary Problem Time Seen by Provider: 04/15/25 10:32 Source: patient Mode of arrival: ambulatory Limitations: no limitations History of Present Illness HPI Narrative: 34 yo M presents with c/o pain at end of urination for 2 wks. Low back aching starting yesterday. Afebrile. No N/V. No penile discharge but states doesn't hurt to check for STI. no hx of kidney stones. All systems reviewed and negative except as noted above. Related Data Allergies Allergy/AdvReac Type Severity Reaction Status Date / Time Penicillins Allergy Mild Rash Verified 10/31/24 12:54 codeine AdvReac Intermediate INCREASES Verified 10/31/24 12:54 HR, BP AND TEMP PMFSH Past Medical History Medical History (Updated 04/16/25 @ 00:01 by Cielo Ruiz) Ingrown toenail of right foot removed COVID-19 Dental abscess Bronchitis Social History Social History Smoking packs per day: 0.5 Smoking cigarettes per day: 10.0 Years smoked: 5 Smoking pack-years: 2.50 Smoking status: Current every day smoker Tobacco type: cigarettes Alcohol intake: current Alcohol use details: social Substance use type: does not use Living arrangements: with family Gender identity (if verbalized by the patient): Male Comments At time of signature, agree with nursing past medical, surgical, social and family history. There is no relevant family history pertinent to the presenting complaint. Exam Narrative: GENERAL: This is a well-nourished, well-developed patient, in no apparent distress. HEAD: normocephalic, atraumatic. EYES: PERRL. Sclera clear/white. Vision is grossly intact. EARS: External ears normal NOSE: External nose normal NECK: Neck supple, non-tender without lymphadenopathy, masses or thyromegaly. CARDIOVASCULAR: Regular rate and rhythm without murmurs, gallops, or rubs. RESPIRATORY: Clear to auscultation. Breath sounds equal bilaterally. No wheezes, rales, or rhonchi. SKIN: warm, Dry, intact with no suspicious lesions or rash, good texture and turgor. NEURO: awake, alert, and oriented to person, place and time. There were no obvious focal neurologic abnormalities. EXTREMITIES: No joint tenderness, effusion, or edema noted. No calf tenderness. Negative Homans sign bilaterally. BACK: No CVA tenderness. Course Course Level of Care: Express Care Visit Vital Signs Vital signs: Vital Signs Temperature 36.5 C 04/15/25 10:03 Pulse Rate 65 04/15/25 10:03 Respiratory Rate 16 04/15/25 10:03 Blood Pressure 123/77 04/15/25 10:03 Pulse Oximetry 98 04/15/25 10:03 Oxygen Delivery Room Air 04/15/25 10:03 Temperature 36.5 C 04/15/25 10:03 Pulse Rate 65 04/15/25 10:03 Respiratory Rate 16 04/15/25 10:03 Blood Pressure 123/77 04/15/25 10:03 Pulse Oximetry 98 04/15/25 10:03 Oxygen Delivery Room Air 04/15/25 10:03 Reviewed MDM - Male Genitourinary MDM Narrative Medical decision making narrative: Normal urinalysis. Urine culture pending. Patient tested for gonorrhea, Trichomonas and chlamydia. Will wait for test results prior to treating with antibiotics. Patient agrees with plan of care. A KUB was upper today to rule out kidney stones and patient did not feel was necessary. Lab Data Labs: Lab Results 04/15/25 04/15/25 Range/Units 10:32 10:40 POC Urine Color Yellow POC Urine Clarity Clear POC Urine pH 5.5 POC Ur Specif [place] 1.030 POC Urine Protein Negative (Negative) POC Ur Glucose (UA) Negative (Negative) POC Urine Ketones Negative (Negative) POC Urine Blood Trace (Negative) POC Urine Nitrite Negative (Negative) POC Urine Bilirubin Negative (Negative) POC Urine Urobilinogen 0.2 POC U Leukocyte Esteras Negative (Negative) C. trachomatis (PCR) Not detected (NOT DETECTE) N. gonorrhoeae (PCR) Not detected (NOT DETECTE) T. vaginalis (PCR) Not detected (NOT DETECTE) Discharge Plan Discharge Clinical Impression: Dysuria Patient Disposition: Home Condition: Stable Instructions: Dysuria (ED) Additional Instructions: your urinalysis was normal today. A urine culture was ordered. Results will take 48-72 hours. Testing was ordered for gonorrhea, Trichomonas and chlamydia. Results will take 48-72 hours. If you have a positive result we will call you and prescribed an antibiotic at that time. Drink at least 64 oz water a day. Decrease caffeine intake. Follow-up with your doctor if symptoms are not improving. If you have severe pain, vomiting, fever go to the ER. Patient Language: Mozambican Prescriptions: New ibuprofen 800 mg tablet 800 mg PO TID PRN (Reason: pain) Qty: 30 0RF Follow-up/Referrals: Robert,MAXINE Gao [Primary Care Provider] Time of Disposition: 10:41
[2025-04-15 10:34] LABS: EDUAAPPEAR Clear; EDUABILI Negative (Negative); EDUABLOOD Trace (Negative); EDUACOLOR1 Yellow; EDUAGLUCOSE Negative (Negative); EDUAKETONE Negative (Negative); EDUALEUKO Negative (Negative); EDUANITRATE Negative (Negative); EDUAPH 5.5; EDUAPROTEIN Negative (Negative); EDUASPGRAVITY 1.030; EDUAUROBILI 0.2
[2025-04-15 19:29] LABS: Trichomonas Vag PCR NOT DETECTED (NOT DETECTE)
== END 2025-04-15 10:45 | disposition home or self-care (01) ==
PROVIDERS: Emergency Provider Nurse Practitioner Family; PCP Physician Assistant
DX: R30.0 Dysuria (principal); F17.210 Nicotine dependence, cigarettes, uncomplicated; Z86.16 Personal history of COVID-19
CPT/HCPCS: 81003; 87086; 87491; 87591; 87661; 99213; G0463

== ENCOUNTER 2025-05-26 08:38 | Emergency (ER) | payer OTHER, SELFPAY ==
--- NOTE | 2025-05-26 08:38 | ED_ITS ---
HPI - URI/Sore Throat General Chief Complaint: Upper Respiratory Infection Stated Complaint: Sinus Time Seen by Provider: 05/26/25 08:38 Source: patient Mode of arrival: ambulatory Limitations: no limitations History of Present Illness HPI Narrative: Maurizio is a 34 year old male patient presenting to the clinic today with c/o nasal congestion, cough, nausea, sore throat, fever, and body aches x 3 days. He reports fever this morning was 101.6F. Has been taking Dayquil and ibuprofen. Denies any chest pain or shortness of breath. No headache. Related Data Allergies Allergy/AdvReac Type Severity Reaction Status Date / Time Penicillins Allergy Mild Rash Verified 05/26/25 08:41 codeine AdvReac Intermediate INCREASES Verified 05/26/25 08:41 HR, BP AND TEMP Review of Systems Review of Systems: Pertinent positives per HPI. Patient denies any rash, headache, visual changes, dizziness, shortness of breath, chest pain, palpitations, vomiting, diarrhea, constipation, abdominal pain, or any urinary issues. PMFSH Past Medical History Medical History Ingrown toenail of right foot removed COVID-19 Dental abscess Bronchitis Social History Social History Smoking packs per day: 0.5 Smoking cigarettes per day: 10.0 Years smoked: 5 Smoking pack-years: 2.50 Smoking status: Current every day smoker Tobacco type: cigarettes Alcohol intake: current Alcohol use details: social Substance use type: does not use Living arrangements: with family Gender identity (if verbalized by the patient): Male Comments At the time of my signature, I reviewed and agree with the nursing past medical, surgical, social, and family history. There is no relevant family history pertinent to the patient complaint. Exam Narrative: General: Well-developed, well nourished, in no apparent distress Head: Normocephalic, atraumatic Eyes: Pupils equally round and reactive to light bilaterally, EOM intact, sclera and conjunctive clear, no discharge, lids normal Ears: TMs intact and congested, ear canals clear, no drainage, grossly hearing normal. Nose: Nares patent, clear nasal discharge, no inflammation, no sinus tenderness. Mouth: Oropharynx red with tonsillar enlargement without lesions or masses, good dentition, MMM. Neck: Supple, trachea midline, enlargement of anterior cervical nodes, no thyroid masses or goiter palpable. Cardio: Regular rate and rhythm, s1 and s2 normal, no murmur appreciated. Resp: Clear to auscultation bilaterally anteriorly and posteriorly, no rhonchi, rales, wheezing or rubs Course Course Level of Care: Express Care Visit Vital Signs Vital signs: Vital Signs Temperature 36.6 C 05/26/25 08:44 Pulse Rate 97 05/26/25 08:44 Respiratory Rate 18 05/26/25 08:44 Blood Pressure 135/83 05/26/25 08:44 Pulse Oximetry 98 05/26/25 08:44 Oxygen Delivery Room Air 05/26/25 08:44 Temperature 36.6 C 05/26/25 08:44 Pulse Rate 97 05/26/25 08:44 Respiratory Rate 18 05/26/25 08:44 Blood Pressure 135/83 05/26/25 08:44 Pulse Oximetry 98 05/26/25 08:44 Oxygen Delivery Room Air 05/26/25 08:44 MDM MDM Narrative Medical decision making narrative: At the time of visit patient is resting comfortably on the exam table. Patient appears to be nontoxic. C/o nasal congestion, nausea, cough, sore throat, fever, and body aches x 3 days. He reports fever this morning was 101.6F. Has been taking Dayquil and ibuprofen. Denies any chest pain or shortness of breath. No headache. On exam patient has mild TMs intact and congested, clear nasal drainage, mild anterior turbinate inflammation, oral pharynx red tonsillar, anterior cervical lymphadenopathy, lung sounds are clear, heart rates regular rate and rhythm. COVID, flu, and strep test were ordered. Labs: COVID, influenza, and strep test were performed. Strep test was positive. COVID and influenza testing was negative. Plan: Patient has strep pharyngitis. Prescription for azithromycin was sent pharmacy as patient allergies to penicillin. Work note was given. Supportive measures were discussed with the patient and they voiced understanding discharge instructions and agrees to treatment plan. Return precautions reviewed Differential Diagnosis Differential Diagnosis: Differential diagnostic considerations for upper respiratory infection include upper respiratory infection, croup, otitis media, sinusitis, viral infection, bronchitis, influenza, pharyngitis, strep, uvulitis. Lab Data Labs: Lab Results 05/26/25 Range/Units 08:47 POC Grp A Strep Screen Positive (Negative) Discharge Plan Discharge Clinical Impression: Strep pharyngitis Patient Disposition: Home Condition: Stable Instructions: Antibiotic Form, Strep Throat (ED) Additional Instructions: Strep test was positive in the clinic today. COVID and influenza testing was negative. Change your toothbrush in 24 hours after initiation of the antibiotics Take prescription medications only as prescribed-azithromycin Increase fluids and stay well hydrated May take Tylenol or motrin as directed on bottle for pain/fever May use Flonase 1 spray in each nare daily May take OTC antihistamines such as Zyrtec or Claritin daily as directed on bottle May apply Vicks vapor rub to chest to open sinuses Sinus rinses for congestion Cepacol spray, cough drops, throat lozenges, warm tea with honey/lemon, gargle salt water to soothe throat BRAT diet for diarrhea Clear liquids x 24 hours then advance as tolerated for nausea/vomiting Go to the ED if you develop a worsening in your condition- high fever not controlled by Tylenol or Motrin, dehydration, weakness, lethargy, shortness of breath, or chest pain. Follow up with your PCP in 3-5 days if symptoms persist. Patient Language: Lebanese Prescriptions: New azithromycin 250 mg tablet See Rx Instructions .ROUTE .COMPLEX Qty: 6 0RF Rx Instructions: For 250 mg dose pack: take 500 mg today (day 1), then 250 mg for 4 days (days 2-5) Follow-up/Referrals: Robert,MAXINE Gao [Primary Care Provider] Stand Alone Forms: Work/School Release IP Time of Disposition: 08:59 Quality NIHSS Nursing Documentation ED NIHSS nursing documentation: reviewed/agree
[2025-05-26 08:44] VITALS: BP 135/83; PULSE 97; RESP 18; TEMP 36.6; O2SAT 98
[2025-05-26 08:55] LABS: EDSTREPNEGPOS1 Positive (Negative)
[2025-05-26 09:07] LABS: EDCOVIDSCREEN Negative (Negative); EDINFLUASCREEN Negative (Negative); EDINFLUBSCREEN Negative (Negative)
== END 2025-05-26 09:07 | disposition home or self-care (01) ==
PROVIDERS: Emergency Provider Nurse Practitioner Family; PCP Physician Assistant
DX: J02.0 Streptococcal pharyngitis (principal); Z20.822 Contact with and (suspected) exposure to COVID-19; F17.210 Nicotine dependence, cigarettes, uncomplicated; Z86.16 Personal history of COVID-19
CPT/HCPCS: 87426; 87804; 87880; 99213; G0463